=== PATIENT | male | born 1975 | race African-American/Black ===

== ENCOUNTER → 2021-01-13 | Outpatient (CLI) | payer BC, OTHER ==
[~2021-01-13] MED LIST: ATORVASTATIN CA10 MG PO
== END ==
LOC: LAB 13:33
PROVIDERS: ATTEND Orthopaedic Surgery Sports Medicine
DX: Z01.812 Encounter for preprocedural laboratory examination (principal); Z20.822 Contact with and (suspected) exposure to COVID-19

== ENCOUNTER → 2021-01-16 | Day surgery (SDC) | payer OTHER ==
[~2021-01-16] VITALS: Ht 175.3 cm; Wt 124.3 kg
[2021-01-16 11:52] VITALS: BP 137/99
[2021-01-16 15:42] VITALS: BP 137/99
--- NOTE | 2021-01-16 18:10 | O ---
[address] [address] OPERATIVE REPORT Name: BLANCA ZUÑIGA Room #: REG [facility]..#: [id number] Admission: 01/16/21 Attend Phys: Denilson Liu MD Discharge: Date of : 71 Report #: [id number] THIS REPORT FOR: cc: GRICELDA - Elena family physician/PCP GRICELDA - No family physician/PCP Denilson Liu MD ~ DATE OF SERVICE: 01/16/2021 SERVICE: Orthopedics. FACILITY: [place]. SURGEON: Denilson Liu MD METAL DEALER: Deirdre Kapadia NP INDICATION FOR METAL DEALER: Assistance with exposure, retraction, graft fixation, and closure. PREOPERATIVE DIAGNOSES: 1. Work-related injury, right knee. 2. Acute full-thickness articular cartilage lesion, right knee medial femoral condyle with associated subchondral fracture. POSTOPERATIVE DIAGNOSES: 1. Work-related injury, right knee. 2. Acute full-thickness articular cartilage lesion, right knee medial femoral condyle with associated subchondral fracture. 3. Right knee loose body. PROCEDURES: 1. Right knee arthroscopic loose body removal. 2. Right knee open osteochondral allograft transplantation to the medial femoral condyle. COMPLICATIONS: None. DRAINS: None. SPECIMENS: Loose body, which was discarded. FINDINGS: 1. 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 2. Normal lateral compartment and intact ACL. [address] [address] OPERATIVE REPORT Name: BLANCA ZUÑIGA Room #: REG [facility]#: [id number] Admission: 01/16/21 Attend Phys: Denilson Liu MD Discharge: Date of : 71 Report #: [id number] 3. A 15 x 8 mm articular cartilage lesion of the medial femoral condyle with the loose body found arthroscopically and removed. 4. Arthrex 16 mm fresh osteochondral allograft transplant to the medial femoral condyle. HISTORY: The patient is a gentleman who sustained an injury to his right knee at work. He had imaging, which demonstrated an acute articular cartilage lesion of the medial femoral condyle and then loose fragment within the knee. He was indicated for surgical treatment. Risks, benefits, alternatives, and indications for surgery were discussed with him in detail and he gave full informed consent and wished to move forward. Risks include, but are not limited to, pain, bleeding, infection, injury to nerves or blood vessels, persistent pain, progression of preexisting chondral injury independent of this particular injury, need for further surgery, as well as complications related to anesthesia. Despite the risks, he wished to proceed. PROCEDURE IN DETAIL: After right lower extremity was correctly identified in the preoperative holding area as the operative extremity, the patient underwent regional nerve block. He was then taken to the operating room where general anesthesia was induced without complications. He was padded appropriately. Prophylactic antibiotics were administered at appropriate time. Tourniquet was applied on the right leg. Right lower extremity was then prepped and draped in standard sterile fashion. Time-out procedure was performed. Esmarch was used. Tourniquet inflated to 300 mmHg. Standard anterolateral viewing portal was established followed by an anteromedial working portal. Diagnostic arthroscopy revealed the above findings. Shaver was used to perform a limited synovectomy as well as chondroplasty of the patella. The medial compartment was evaluated and there was an obvious full-thickness grade 4 articular cartilage lesion that was acute in appearance with some unstable component just posterior to this. There was a loose body behind the medial femoral condyle. This was retrieved with a biter. The medial meniscus was intact, as was the medial tibial plateau. The lateral compartment, as stated, had no additional pathology. We did have spent some time looking for the loose body and it ultimately was found in that position adjacent to the posterior horn and root of the medial meniscus and this was able to be retrieved in total. Arthroscopic effusion was drained. Attention was turned towards the open portion of the procedure. A medial parapatellar arthrotomy was made extending from the inferior pole of the patella down to the tibial tubercle along the medial patellar tendon and full-thickness skin flaps were developed. The lesion was then exposed and retractors were placed. The osteochondral allograft system was used and a guide pin was placed in the center of the defect with a 16 mm template and then it was reamed down to a 12 mm recipient site, which was the size of the fresh allograft [address] [address] OPERATIVE REPORT Name: BLANCA ZUÑIGA Room #: REG [facility].#: [id number] Admission: 01/16/21 Attend Phys: Denilson Liu MD Discharge: Date of : 71 Report #: [id number] that we had, which was in excellent condition. After the femur was prepared, the OCA was thoroughly lavaged to remove any residual fluid or cellularity out of the graft and then the graft was placed into the recipient site and then gently impacted into position with the plastic tamp and a mallet. It was found to seat very well. The fit was excellent anteriorly, laterally, and posteriorly. On the medial side, there was a sharp edge on the cartilage that would benefit from a bevel. So, I used an 11 blade to slightly bevel the articular cartilage in this location and this provided very smooth interface with the graft. The graft sat well and was seated securely. The wound was then copiously irrigated. We took the knee through a range of motion, confirmed that there was no mechanical catching, and then closed the arthrotomy with an 0 Vicryl suture in [id number] fashion interrupted suture line. Skin layer was closed with 2-0 Vicryl followed by running subcuticular 3-0 Monocryl. Sterile dressing was applied. The patient was placed in a compression hose and PolarCare device was applied and then knee immobilizer. Postoperative plan will be for weightbearing as tolerated and range of motion as tolerated. He will use the crutches for the first 2 weeks in recovery and will begin physical therapy postoperatively. <ELECTRONICALLY SIGNED> By: Denilson Liu MD 01/16/21 1810 [id number] [id number] Denilson Liu MD /nt
== END | disposition home or self-care (01) ==
LOC: OR 10:57
PROVIDERS: ATTEND Orthopaedic Surgery Sports Medicine
DX: S89.81XA Other specified injuries of right lower leg, initial encounter (principal); M24.19 Other articular cartilage disorders, other specified site; M84.351A Stress fracture, right femur, initial encounter for fracture; M22.41 Chondromalacia patellae, right knee; M23.41 Loose body in knee, right knee; E11.9 Type 2 diabetes mellitus without complications; G47.30 Sleep apnea, unspecified; F17.210 Nicotine dependence, cigarettes, uncomplicated; K21.9 Gastro-esophageal reflux disease without esophagitis; Z98.890 Other specified postprocedural states; Z79.899 Other long term (current) drug therapy; X58.XXXA Exposure to other specified factors, initial encounter; Y93.89 Activity, other specified; Y92.89 Other specified places as the place of occurrence of the external cause; Y99.8 Other external cause status
CPT/HCPCS: 50010; 50101; 50405; 50951; 50954; 51320; 52001; 52282; 53078; 54118; 56527; 56528; 57103; 57180; 58589; 58680; 58691; 58693; 62110; 62900; 64039; 70005